=== PATIENT | male | born 1980 | race Caucasian/White ===

== ENCOUNTER 2016-07-30 07:06 | Emergency (ER) | payer BC ==
[~2016-07-30] VITALS: Ht 165.1 cm; Wt 62.7 kg
[~2016-07-30 07:06] MED LIST: CEFTIN 250250 MG/TAB PO; FLOMAX 0.40.4 MG/CAP PO; LORTAB 5/500 501 TAB PO; NO HOME MEDICATIONS; NORCO 325 MG-51 TAB PO
[2016-07-30 07:09] VITALS: TEMP 98.6
[2016-07-30] MEDS ORDERED: FLEXERIL 1010 MG/TAB PO (07:38)
[2016-07-30 08:18] VITALS: BP 139/86; PULSE 97
== END 2016-07-30 08:14 | disposition home or self-care (01) ==
LOC: COL.ER 07:06
DX: M62.830 Muscle spasm of back (principal); M54.2 Cervicalgia; M25.511 Pain in right shoulder

== ENCOUNTER 2017-02-20 19:59 | Emergency (ER) | payer BC ==
[~2017-02-20] VITALS: Ht 165.1 cm; Wt 62.7 kg
[~2017-02-20 19:59] MED LIST changes: +FLEXERIL 1010 MG/TAB PO
[2017-02-20 20:07] VITALS: BP 140/95; TEMP 99
[2017-02-20 23:43] VITALS: PULSE 95
== END 2017-02-20 23:45 | disposition home or self-care (01) ==
LOC: COL.ER 19:59
DX: S61.211A Laceration without foreign body of left index finger without damage to nail, initial encounter (principal); F17.210 Nicotine dependence, cigarettes, uncomplicated; Z23 Encounter for immunization; W31.89XA Contact with other specified machinery, initial encounter; Y99.0 Civilian activity done for income or pay

== ENCOUNTER 2018-09-17 12:46 | Emergency (ER) | payer BC ==
[~2018-09-17] VITALS: Ht 165.1 cm; Wt 71.8 kg
[2018-09-17 13:09] VITALS: TEMP 99.3
[2018-09-17 16:36] VITALS: BP 136/89; PULSE 80
== END 2018-09-17 16:36 | disposition home or self-care (01) ==
LOC: COL.ER 12:46
DX: H61.22 Impacted cerumen, left ear (principal); F17.210 Nicotine dependence, cigarettes, uncomplicated

== ENCOUNTER 2018-11-17 10:25 | Emergency (ER) | payer BC ==
[~2018-11-17] VITALS: Ht 175.3 cm; Wt 67.3 kg
[2018-11-17 11:12] LABS: COLLECTION METHOD CLEAN CATCH
[2018-11-17 11:15] LABS: BASO # 0.1 (0.0-0.2); BASO % 0.7 % (0.0-2.0); EOS # 0.2 (0.0-0.7); GRAN # 6.1 (1.4-6.5); GRAN % 69.4 % (42.2-75.2); HEMATOCRIT 46.8 % (42.0-52.0); HEMOGLOBIN 15.9 g/dl (13.5-18.0); LYMPH # 1.7 (1.2-3.4); LYMPH % 19.2 % (20.0-51.0); MEAN CELL VOLUME 95 fl (80.0-100.0); MEAN CORPUSCULAR HEMOGLOBIN 32 pg (27.0-31.0); MEAN CORPUSCULAR HGB CONC 34 g/dl (33.0-37.0); MEAN PLATELET VOLUME 10.1 fl (7.4-10.4); MONO # 0.7 (0.1-0.6); MONO % 8.1 % (1.7-9.3); PLATELET COUNT 226 K/mm3 (130-400); RED BLOOD COUNT 4.94 M/mm3 (4.20-5.60); REDCELL DISTRIBUTION WIDTH-CV 12.9 % (11.5-14.5)
[2018-11-17 11:20] LABS: MUCOUS Present /lpf; PH 7 (5-8); SQUAMOUS EPITHELIAL None Seen /hpf; URINE APPEARANCE Hazy; URINE BACTERIA None Seen /hpf; URINE BILIRUBIN Negative (NEGATIVE); URINE BLOOD Negative (NEGATIVE); URINE COLOR Yellow; URINE GLUCOSE Negative (NEGATIVE); URINE KETONE Negative (NEGATIVE); URINE LEUKOCYTE ESTERASE Negative (NEGATIVE); URINE NITRATE Negative (NEGATIVE); URINE PROTEIN(semi-quant) Negative (NEGATIVE); URINE RBC 0-2 /hpf; URINE UROBILINOGEN >=4.0 mg/dL (NEGATIVE)
[2018-11-17 11:29] LABS: ALANINE AMINOTRANSFERASE 23 U/L (21-72); ALBUMIN 4.6 gm/dL (3.5-5.0); ALKALINE PHOSPHATASE 61 U/L (50-136); ANION GAP 8 mmol/L (7-16); AST,SGOT 29 U/L (15-37); BILIRUBIN,TOTAL 0.4 mg/dL (0.0-1.0); BLOOD UREA NITROGEN 15 mg/dL (9-20); CALCIUM 9.2 mg/dL (8.4-10.2); CARBON DIOXIDE 30 mmol/L (22-30); CHLORIDE 102 mmol/L (98-107); CREATININE, serum 1.06 (0.66-1.25); GLUCOSE 91 mg/dL (74-106); LIPASE 97 U/L (23-300); POTASSIUM 4.2 mmol/L (3.4-5.0); SODIUM 140 mmol/L (137-145); TOTAL PROTEIN 8.1 gm/dL (6.4-8.2)
[2018-11-17 11:30] LABS: C-REACTIVE PROTEIN < 0.5 mg/dL (0.0-0.9)
[2018-11-17 11:39] LABS: TROPONIN-I < 0.012 ng/mL (0.000-0.035)
[2018-11-17] MEDS ORDERED: PRIL40 PO (12:42)
[2018-11-17 13:10] VITALS: BP 122/95; PULSE 85; TEMP 98.2
== END 2018-11-17 13:10 | disposition home or self-care (01) ==
LOC: COL.ER 10:25
PROVIDERS: Nurse Practitioner Primary Care
DX: K21.9 Gastro-esophageal reflux disease without esophagitis (principal); F41.9 Anxiety disorder, unspecified; F17.210 Nicotine dependence, cigarettes, uncomplicated

== ENCOUNTER 2018-12-03 14:33 | Emergency (ER) | payer BC ==
[~2018-12-03] VITALS: Ht 165.1 cm; Wt 65.5 kg
[~2018-12-03 14:33] MED LIST changes: +PRIL40 PO
[2018-12-03 14:43] VITALS: TEMP 99.4
[2018-12-03 15:58] VITALS: BP 142/81
[2018-12-03 16:10] VITALS: PULSE 69
== END 2018-12-03 16:10 | disposition home or self-care (01) ==
LOC: COL.ER 14:33
DX: S50.312A Abrasion of left elbow, initial encounter (principal); W01.0XXA Fall on same level from slipping, tripping and stumbling without subsequent striking against object, initial encounter; X50.1XXA Overexertion from prolonged static or awkward postures, initial encounter; Y92.410 Unspecified street and highway as the place of occurrence of the external cause

== ENCOUNTER 2020-10-25 12:45 | Emergency (ER) | payer BC ==
[~2020-10-25] VITALS: Ht 165.1 cm; Wt 62.7 kg
[2020-10-25 13:08] VITALS: TEMP 97.5
[2020-10-25 14:15] LABS: BASO # 0.1 (0.0-0.2); BASO % 0.8 % (0.0-2.0); EOS # 0.1 (0.0-0.7); EOS % 0.8 % (0-4.0); GRAN # 6.1 (1.4-6.5); GRAN % 80.1 % (42.2-75.2); HEMOGLOBIN 14.9 g/dl (13.5-18.0); LYMPH # 0.6 (1.2-3.4); MEAN CELL VOLUME 98 fl (80.0-100.0); MEAN CORPUSCULAR HEMOGLOBIN 33 pg (27.0-31.0); MEAN CORPUSCULAR HGB CONC 34 g/dl (33.0-37.0); MEAN PLATELET VOLUME 9.5 fl (7.4-10.4); MONO # 0.8 (0.1-0.6); MONO % 9.9 % (1.7-9.3); PLATELET COUNT 245 K/mm3 (130-400); RED BLOOD COUNT 4.47 M/mm3 (4.20-5.60); REDCELL DISTRIBUTION WIDTH-CV 12.8 % (11.5-14.5)
[2020-10-25 14:30] LABS: ALBUMIN 4.8 gm/dL (3.5-5.0); BILIRUBIN,TOTAL 0.5 mg/dL (0.0-1.0); CALCIUM 9.2 mg/dL (8.4-10.2); CREATININE, serum 0.86 (0.66-1.25); POTASSIUM 3.7 mmol/L (3.4-5.0); TOTAL PROTEIN 8.1 gm/dL (6.4-8.2)
[2020-10-25] MEDS ORDERED: DOXYCYCLINE HY100 MG PO (15:12)
[2020-10-25 15:33] VITALS: BP 147/82; PULSE 101
[2020-10-27 14:43] LABS: LYME DISEASE ANTIBODIES Negative (Negative)
[2020-10-27 23:11] LABS: SPOTTED FEVER IGG ANTIBODY <1:64 (<1:64)
== END 2020-10-25 15:33 | disposition home or self-care (01) ==
LOC: COL.ER 12:45
PROVIDERS: Emergency Medicine
DX: S60.561A Insect bite (nonvenomous) of right hand, initial encounter (principal); F17.290 Nicotine dependence, other tobacco product, uncomplicated; W57.XXXA Bitten or stung by nonvenomous insect and other nonvenomous arthropods, initial encounter